=== PATIENT | female | born 1950 | race Caucasian/White ===

== ENCOUNTER → 2017-08-30 13:00 | Outpatient (CLI) | payer MEDICARE, BC, OTHER, SELFPAY ==
--- NOTE | 2017-08-30 13:03 | CDU_ITS ---
Reason For Study: Carotid stenosis s/p LT CEA Rt. Velocities/BP Lt. Velocities/BP Prox CCA 78.0/16.4 cm/sec. Prox CCA 81.5/19.9 cm/sec. Mid CCA 78.6/21.7 cm/sec. Mid CCA 78.0/19.3 cm/sec. Dist CCA 68.6/17.0 cm/sec. Dist CCA 76.2/22.9 cm/sec. Prox ICA 51.0/17.6 cm/sec. Prox ICA 75.0/24.6 cm/sec. Mid ICA 73.3/18.8 cm/sec. Mid ICA 78.6/29.3 cm/sec. Dist ICA 78.6/29.3 cm/sec. Dist ICA 79.7/25.8 cm/sec. Rt. ICA/CCA = 1.0. Lt. ICA/CCA = 1.0. Prox ECA 87.4/13.5 cm/sec. Prox ECA 70.9/14.1 cm/sec. Rt. Vert. 63.9/15.2 cm/sec. Lt. Vert. 39.9/11.1 cm/sec. Right Extracranial There is intimal thickening but no significant atherosclerotic plaque noted in the right common carotid artery. There is heterogeneous, smooth atherosclerotic plaque noted in the right internal carotid artery. There is intimal thickening but no significant atherosclerotic plaque noted in the right external carotid artery. Antegrade flow is noted in the right vertebral artery. Left Extracranial There is intimal thickening but no significant atherosclerotic plaque noted in the left common carotid artery. There is homogeneous, smooth atherosclerotic plaque noted in the left internal carotid artery. There is intimal thickening but no significant atherosclerotic plaque noted in the left external carotid artery. Antegrade flow is noted in the left vertebral artery. Procedure Carotid Duplex [id number]. Exam performed in department. Interpretation Summary Minimal smooth plague bilateral internal carotids with post-operative changes of the left carotid bulb and internal carotid <50% stenosis bilateral internal carotids. Normal flow bilateral external carotids Patent and antegrade vertebrals bilaterally Ordering Physician: Lyle Navarrete Referring Physician: Mark Purcell Performed By: Karen Crenshaw RVT
== END ==
PROVIDERS: Family Provider Family Medicine; PCP Family Medicine; Visit Provider Surgery
DX: I65.23 Occlusion and stenosis of bilateral carotid arteries (principal)
CPT/HCPCS: 93880

== ENCOUNTER → 2018-03-30 08:59 | Outpatient (CLI) | payer MEDICARE, OTHER, BC, SELFPAY ==
--- NOTE | 2018-03-30 09:00 | RAD_ITS ---
STUDY: X-RAY - RIGHT SHOULDER REASON FOR EXAM: Pain. TECHNIQUE: 4 view(s) of the shoulder. COMPARISON: None. FINDINGS: Normal glenohumeral articulation. Normal acromioclavicular joint. Normal acromion. Normal humeral head and visualized proximal humerus. The soft tissue structures are unremarkable. Normal visualized pulmonary apex. RAD/Shoulder min 2 Views IMPRESSION: Normal x-ray examination of the right shoulder. Electronically Signed: Zach Greer MD at 10:53 EST Tel , Service support ,
== END ==
PROVIDERS: Family Provider Family Medicine; PCP Family Medicine; Referring Provider Physician Assistant; Visit Provider Physician Assistant
DX: M25.511 Pain in right shoulder (principal)
CPT/HCPCS: 73030

== ENCOUNTER 2018-04-06 07:14 | Outpatient (RCR) | payer MEDICARE, BC, OTHER, SELFPAY ==
--- NOTE | 2018-04-06 09:07 | HP.PTEVAL ---
Patient's Visit Information LOREE MIRAMONTES is a 67 year old F referred to Physical Therapy by NINA Velazquez with a diagnosis of R shoulder impingment. Date of Evaluation: 04/06/18 Physical Therapist: Jose A Schmidt DPT - Visit Plan Frequency: 2x /Week Duration: 4 Weeks Plan: Start with RTC and scapular stability/strengthening exercises in non painful ranges. Do not push through june. If pain starts to increas again add in modalities and inferior gldies with overhead movements to restor arthokinematics of G/H joint. Pt. desires to trial exercises for stability of RTC and shoulder joint on own at this point in time and follow up in 1-2 weeks as needed. - Subjective Findings: Pt. is here today for her initial evaluation with diagnosis of R shoulder impingment syndrome. Pt. reports having increased soreness for ~2 months at this point in time, but is doing better now that she is taking meloxicam. Pt. denies N/T in either UE. No neck pain. Pt. denies sudden weakness. Pt. reports increased soreness with opening car door, sliding glass doors, and reaching out in front of her self. Decreased pain: not doing those activtiies. Pt. is able to work in sales, with mild lifting wihtout increase in symptoms. Pt. is able to sleep without issues. Pt. is hopeful to reduce symptoms allowing her to complete all recreational activities without issues. - Pain R shoulder Pain Intensity (Out of 10): 0 Pain Intensity Range: 4 Comment: achy - Objective POSTURE: Pt. has slight protracted scaplue, rounded shoulders, and FH. Pt. is able to correct with Vcing. PALPATION: Pt. has increased soreness at deltoid muscle belly, and subacromial space at anterior aspect. PT. has no pain with palpation of scapular region. No pain with UT or throughout cervcial spine. NEURO: Normal no issues with DTR of sensation. ROM: Pt. has full ROM of RUE, mild increase in symptoms with overpressure at flexion and abduction. MMT: RUE- elbow- 5/5 throughout, no issues. Shoulder- flexion 5-/5 mild increase NW, abd 4+/5 mild increase NW, ext 5/5 NE, ER 4+/5 mild increase NW, IR 5/5 NE. LUE- 5/5 throughout without increase in symptoms. - Special Tests R Shoulder Lift Off Test - Subscapular Tear: Negative R Shoulder Drop Sign - IS Test: Negative R Shoulder Empty Can - SS: Positive R Shoulder Belly Press - SupScap: Negative R Shoulder Neer - Impingement: Positive R Shoulder Cabrera Julio - Impingement: Positive R Shoulder Biceps Load Test - Labrum: Negative R Shoulder Yeargasons - SLAP: Negative Comments: Pt. has + empty, mild pain. - Goals Goal 1:: Pt. to be I with HEP. Goal Time Frame: 4-6 Weeks Goal 2:: Pt. to have increased strength of R RTC and scapular musculature by 1/2 grade to increase stability in this region, reducing stress applied to RTC with functional motions. Goal Time Frame: 4-6 Weeks Goal 3:: Pt. to have no pain with all ADLs. Goal Time Frame: 4-6 Weeks Goal 4:: Pt. to get back to all recreational activities without increase in symptoms. Goal Time Frame: 4-6 Weeks - Rehabilitation Potential Physical Therapy Diagnosis: Pt. has signs and symptoms consistent with R shoulder impingment. Pt. reports being better since starting anti inflammatory. Pt. has mild symptoms with impingment testing and some mild weakness of RTC and surrounding musculature. I would recommend RTC stability exercises and postural strengthening to reduce stress on RTC with overhead and outward reaching motions. Rehabilitation Potential: Excellent - Anticipated Interventions Patient/Client Instruction: Educate patient on: Condition, Plan of Care, Risk Factors, Benefits of Fitness Program For the Purpose of:: To improve decision making, To facilitate caregiver knowledge, To improve self management, To prevent re-injury, To improve ability to perform tasks related to life management, To improve tolerance to ADL's Therapeutic Exercise to Include: Strength training, Power training, Postural training, Flexibilty training, Passive ROM, Active ROM, Scapular Strength/Stabilization For the Purpose of:: To decrease pain, To decrease swelling/inflammation, To improve nutrient delivery to tissue, To improve health of tissue, To decrease soft tissue restriction, To increase flexibility/ROM Manual Therapy Techniques to Include: Mobilization, Passive ROM For the Purpose of:: To decrease pain, To decrease swelling/inflammation, To increase ROM, To improve nutrient delivery to tissue, To increase oxygenation perfusion Other: inferior glides with overhead movements. Cryotherapy (ice pack, ice massage): Yes Ultrasound (thermal/non thermal): Yes For the Purpose of:: To decrease pain, To decrease swelling/inflammation, To improve nutrient delivery to tissue, To improve health of tissue Thank you for the opportunity to evaluate your patient. For Medicare and Medicare HMO plans, please review the plan of care and approve it. It will need to be FAXED BACK to us at [phone] for Medicare purposes. For Medicare only, by signing this I certify the plan of care. Please let me know if there are questions or concerns regarding this plan of care. Physician Signature: Date:
--- NOTE | 2018-05-12 12:01 | HP.PT.NRP ---
HP - Discharge Summary (1) - Patient Information LOREE MIRAMONTES was seen in my office for initial evaluation on 04/06/18. The following Plan of Care was established for this patient: Initial Frequency: 2x /Week Initial Duration: 4 Weeks - Anticipated Interventions Patient/Client Instruction: Educate patient on: Condition, Plan of Care, Risk Factors, Benefits of Fitness Program For the Purpose of:: To improve decision making, To facilitate caregiver knowledge, To improve self management, To prevent re-injury, To improve ability to perform tasks related to life management, To improve tolerance to ADL's Therapeutic Exercise to Include: Strength training, Power training, Postural training, Flexibilty training, Passive ROM, Active ROM, Scapular Strength/Stabilization For the Purpose of:: To decrease pain, To decrease swelling/inflammation, To improve nutrient delivery to tissue, To improve health of tissue, To decrease soft tissue restriction, To increase flexibility/ROM Manual Therapy Techniques to Include: Mobilization, Passive ROM For the Purpose of:: To decrease pain, To decrease swelling/inflammation, To increase ROM, To improve nutrient delivery to tissue, To increase oxygenation perfusion Comments: inferior glides with overhead movements. Cryotherapy (ice pack, ice massage): Yes Ultrasound (thermal/non thermal): Yes For the Purpose of:: To decrease pain, To decrease swelling/inflammation, To improve nutrient delivery to tissue, To improve health of tissue This patient was last seen in our office 04/06/18. Pertinent comments regarding their Physical therapy will appear below: Pt. was seen for her initial evaluation with shoulder impingment. Pt. was given exercises at her evaluation to complete and she wanted to complete on her own. Pt. was to follow up with PT if needed, but has not been seen in ~6 weeks and will be DC from PT at this point in time. At this point I will be discontinuing this patient from physical therapy. I would be happy to see this patient again in the future if found appropriate by the physician. Thank you! Jose A Schmidt DPT
== END 2018-04-06 19:00 | disposition home or self-care (01) ==
LOC: PT 07:14
PROVIDERS: Referring Provider Physician Assistant; Visit Provider Physician Assistant
DX: M25.811 Other specified joint disorders, right shoulder (principal); S46.819D Strain of other muscles, fascia and tendons at shoulder and upper arm level, unspecified arm, subsequent encounter
CPT/HCPCS: 97110; 97161

== ENCOUNTER → 2018-06-08 08:57 | Outpatient (CLI) | payer MEDICARE, OTHER, SELFPAY ==
--- NOTE | 2018-06-08 08:59 | RAD_ITS ---
STUDY: X-RAY - RIGHT KNEE REASON FOR EXAM: Pain. TECHNIQUE: 5 view(s) of the knee. COMPARISON: Radiographs 07/30/2015. FINDINGS: Normal visualized distal femur. Normal visualized proximal tibia and fibula. Normal proximal tibiofibular articulation. Normal medial femorotibial compartment. Normal lateral femorotibial compartment. There is [id number] joint space narrowing of the patellofemoral articulation. There is a very small soft tissue calcification adjacent to the medial patellar facet. RAD/Knee 4 or More Views IMPRESSION: Patellofemoral arthrosis. Electronically Signed: Zach Greer MD at 14:05 EDT Tel , Service support ,
--- NOTE | 2018-06-08 08:59 | RAD_ITS ---
STUDY: X-RAY - RIGHT ANKLE REASON FOR EXAM: Pain. TECHNIQUE: 3 view(s) of the ankle. COMPARISON: None. FINDINGS: Normal visualized distal tibia and fibula. Normal medial and lateral malleoli. Normal tibiotalar articulation and ankle mortise. Normal visualized talus and calcaneus. The visualized subtalar, talonavicular, calcaneocuboid and tarsal articulations are normal. The soft tissue structures are unremarkable. RAD/Ankle min 3 Views IMPRESSION: Normal x-ray examination of the right ankle. Electronically Signed: Zach Greer MD at 13:57 EDT Tel , Service support ,
[2018-06-08 13:15] LABS: Synovial Fld Polynuclear WBC # 0.074 10^3/ul
[2018-06-08 13:21] LABS: AUTO B FLUID DILUENT BKGD CT WBC <0.1 RBC <0.01 (W<.1,R<.01)
[2018-06-08 13:22] LABS: Appearance /Synovial Fluid Clear (CLEAR); Color / Synovial Fluid Yellow (Pale Yellow); Viscosity / Synovial Fluid Liquid (HIGH)
[2018-06-08 13:37] LABS: Source / Synovial Fluid RIGHT KNEE
[2018-06-08 14:17] LABS: Body Fluid QC Type(s) BF1Q; Lymph 26 %; Monocyte /Synovial Fluid 23 %; Neutrophil 13 % (0-25); Other Cell /Synovial Fluid 38 %
[2018-06-09 14:21] LABS: Pathologist Comment Reviewed
[2018-06-10 08:46] LABS: GLUCOSE, SYNOVIAL FLUID 92 mg/dL (.); PROTEIN, SYNOVIAL FLUID 3.4 g/dL (.)
== END ==
PROVIDERS: Referring Provider Orthopaedic Surgery; Visit Provider Orthopaedic Surgery
DX: M25.461 Effusion, right knee (principal)
CPT/HCPCS: 73564; 73610; 82945; 84157; 87070; 87075; 87205; 89050; 89051

== ENCOUNTER 2018-06-15 07:25 | Outpatient (RCR) | payer MEDICARE, OTHER, SELFPAY | END 2018-06-15 19:00 | disposition home or self-care (01) | LOC: PT 07:25 | PROVIDERS: Referring Provider Orthopaedic Surgery; Visit Provider Orthopaedic Surgery | DX: M17.11 Unilateral primary osteoarthritis, right knee (principal); M71.21 Synovial cyst of popliteal space [Baker], right knee; M25.371 Other instability, right ankle; M75.21 Bicipital tendinitis, right shoulder; M71.9 Bursopathy, unspecified ==

== ENCOUNTER → 2018-06-20 08:54 | Outpatient (CLI) | payer MEDICARE, BC, OTHER, SELFPAY | PROVIDERS: Referring Provider Nurse Practitioner; Visit Provider Nurse Practitioner | DX: R00.2 Palpitations (principal) | CPT/HCPCS: 93225; 93226 ==

== ENCOUNTER 2018-08-15 09:00 | Outpatient (RCR) | payer MEDICARE, OTHER, SELFPAY ==
[2018-08-07 14:43] VITALS: BMI 24.5
== END 2018-08-15 19:00 | disposition home or self-care (01) ==
LOC: PT 09:00
PROVIDERS: Visit Provider Physician Assistant
DX: Z00.00 Encounter for general adult medical examination without abnormal findings (principal)

== ENCOUNTER → 2018-08-16 09:34 | Outpatient (CLI) | payer MEDICARE, BC, OTHER, SELFPAY ==
[2018-08-16 09:35] VITALS: BMI 24.5
--- NOTE | 2018-08-16 09:36 | RAD_ITS ---
STUDY: X-RAY - LEFT KNEE REASON FOR EXAM: Female, 68 years old. Pain, stiffness TECHNIQUE: 4 view(s) of the knee. COMPARISON: 03/11/2015 FINDINGS: Since the previous study, patient has undergone replacement of the lateral compartment left knee joint. Components demonstrate anatomic alignment. No plain film evidence of hardware complication or failure. There is mild medial compartment and patellofemoral joint arthrosis. No demonstrated fracture or joint effusion or suspicious soft tissue swelling. RAD/Knee 4 or More Views IMPRESSION: Replaced lateral compartment of the left knee joint free of complication Mild arthrosis No demonstrated fracture or suspicious osseous lesion Electronically Signed: Hermes Thompson MD at 10:41 EDT , Service support ,
== END ==
PROVIDERS: Referring Provider Orthopaedic Surgery; Visit Provider Orthopaedic Surgery
DX: Z96.659 Presence of unspecified artificial knee joint (principal)
CPT/HCPCS: 73564

== ENCOUNTER → 2019-01-11 07:33 | Outpatient (CLI) | payer MEDICARE, BC, OTHER, SELFPAY ==
[2018-08-25 09:16] VITALS: BMI 24.5
--- NOTE | 2019-01-11 07:36 | CT_ITS ---
STUDY: CT LEFT FOOT REASON FOR EXAM: Female, 68 years old. Fracture. RADIATION DOSAGE (If Supplied By Facility): CTDIvol = ( 15.35 ) mGy, DLP = ( 442.03 ) mGycm TECHNIQUE: Thin section transaxial imaging of the foot was obtained, with sagittal and coronal reconstructed images. Individualized dose optimization techniques were used for this CT. COMPARISON: None. FINDINGS: Normal talus, calcaneus, and tarsal bones. Normal visualized tibiotalar, subtalar, talonavicular, calcaneocuboid, tarsal and tarsometatarsal articulations. Normal first through fourth metatarsi. A nondisplaced fracture of the base of the fifth metatarsal. Normal metatarsophalangeal joint of the great toe. Normal tibial and fibular sesamoid bones. Normal interphalangeal joint of the great toe. Normal phalanges of the great toe. Normal second through fifth metatarsophalangeal joints. Normal interphalangeal joints and phalanges of the lesser toes. The soft tissue structures are unremarkable. CT/Extremity Lower without Contra IMPRESSION: Nondisplaced fracture of the base of the fifth metatarsal. There is no associated soft tissue swelling. The foot is otherwise unremarkable. Electronically Signed: Matthew Vu DO at 20:04 EST Tel [phone], Service support ,
== END ==
PROVIDERS: Family Provider Internal Medicine; PCP Internal Medicine; Referring Provider Family Medicine; Visit Provider Podiatrist Foot & Ankle Surgery
DX: S92.355D Nondisplaced fracture of fifth metatarsal bone, left foot, subsequent encounter for fracture with routine healing (principal)
CPT/HCPCS: 73700

== ENCOUNTER → 2019-08-17 12:50 | Outpatient (CLI) | payer MEDICARE, BC, OTHER, SELFPAY ==
[2018-08-25 09:16] VITALS: BMI 24.5
--- NOTE | 2019-08-17 12:51 | CDU_ITS ---
Reason For Study: CAROTID STENOSIS Rt. Velocities/BP Lt. Velocities/BP Prox CCA 90/19 cm/sec. Prox CCA 99/26 cm/sec. Mid CCA 69/15 cm/sec. Mid CCA 79/19 cm/sec. Dist CCA 69/22 cm/sec. Dist CCA 75/20 cm/sec. Prox ICA 50/18 cm/sec. Prox ICA 78/26 cm/sec. Mid ICA 76/26 cm/sec. Mid ICA 74/26 cm/sec. Dist ICA 108/41 cm/sec. Dist ICA 88/26 cm/sec. Rt. ICA/CCA = 1.2. Lt. ICA/CCA = .9. Prox ECA 88/15 cm/sec. Prox ECA 79/10 cm/sec. Rt. Vert. 88/23 cm/sec. Lt. Vert. 29/7 cm/sec. Right Extracranial There is homogeneous, smooth atherosclerotic plaque noted in the right common carotid artery. There is heterogeneous, irregular atherosclerotic plaque noted in the right internal carotid artery. There is homogeneous, smooth atherosclerotic plaque noted in the right external carotid artery. Antegrade flow is noted in the right vertebral artery. Left Extracranial There is homogeneous, smooth atherosclerotic plaque noted in the left common carotid artery. There is homogeneous, smooth atherosclerotic plaque noted in the left internal carotid artery. There is homogeneous, smooth atherosclerotic plaque noted in the left external carotid artery. Antegrade flow is noted in the left vertebral artery. Procedure Carotid Duplex [id number]. Exam performed in department. Interpretation Summary Minimal heterologous irregular plaque at the proximal right internal carotid artery with less than 50% stenosis. <50% stenosis right external carotid Postoperative changes of the left carotid bulb and proximal portion of the internal carotid artery with minimal smooth plaque and less than 50% stenosis. <50% stenosis left external carotid Patent and antegrade vertebral arteries bilaterally with slightly diminished velocity on the left. No significant change since August 30, 2017 Ordering Physician: Lyle Navarrete Referring Physician: RICK COULTER Performed By: Trinidad Anderson, RDCS, RVT
== END ==
PROVIDERS: PCP Internal Medicine; Referring Provider Surgery; Visit Provider Surgery
DX: I65.23 Occlusion and stenosis of bilateral carotid arteries (principal)
CPT/HCPCS: 93880